=== PATIENT | female | born 1995 | race Caucasian/White ===

== ENCOUNTER 2017-06-11 19:01 | Emergency (ER) | payer MEDICAID, OTHER ==
[~2017-06-11] VITALS: Ht 157.5 cm; Wt 77.1 kg
[2017-06-11 19:05] VITALS: BP 132/75
--- NOTE | 2017-06-11 19:30 | NUR ---
21/F CAME IN W C/O 01/19 HEADACHE S/P MECHANICAL FALL. PT STATES " I SLIPPED AT THE MALL AND FELL BACKWARDS". LARGE HEMATOMA ON RT TEMPORAL AREA, NO BLEEDING NOTED. AOX4, GCS 15, PT DENIES ALOC, DENIES VISUAL DISTURBANCES, DENIES N/V. GAIT ASSESSED, PT WAS STEADY AND AMBULATORY WITHOUT DIFFICULTIES. DENIES PMH/RX/OTC
--- NOTE | 2017-06-11 21:00 | NUR ---
Patient discharged with v/s stable. Written and verbal after care instructions given and explained. Patient verbalized understanding. Ambulatory with steady gait. All questions addressed prior to discharge. Advised to follow up with PMD.
[2017-06-11 21:13] VITALS: BP 101/58
== END 2017-06-11 21:00 | disposition home or self-care (01) ==
LOC: MED 19:01
DX: S09.90XA Unspecified injury of head, initial encounter (principal); R03.0 Elevated blood-pressure reading, without diagnosis of hypertension; W19.XXXA Unspecified fall, initial encounter; Y93.89 Activity, other specified; Y92.59 Other trade areas as the place of occurrence of the external cause; Y99.8 Other external cause status
CPT/HCPCS: 81025; 99282

== ENCOUNTER 2017-08-10 11:56 | Emergency (ER) | payer OTHER ==
[~2017-08-10] VITALS: Ht 160 cm; Wt 78.5 kg
[2017-08-10 12:03] VITALS: BP 122/69
--- NOTE | 2017-08-10 12:05 | NUR ---
pt ambulates with steady gait to chair C.
--- NOTE | 2017-08-10 12:07 | NUR ---
21 YO F BIB BOYFRIEND W/ C/O SWOLLEN LEFT EYE. PT DENIES ANY DRAINAGE FROM THE EYE. NO REDNESS NOTED, BUT LEFT EYE IS ALMOST SWOLLEN SHUT. PT A&O X 4. GCS 15. CMS INTACT. RR EVEN AND UNLABORED. PT DENIES PAIN AT THIS TIME. ER MD ARANA NOTIFIED. PT NEEDS MET. WILL CONTINUE TO MONITOR.
[2017-08-10 12:22] VITALS: BP 122/69
== END 2017-08-10 12:22 | disposition home or self-care (01) ==
LOC: MED 11:56
DX: H00.024 Hordeolum internum left upper eyelid (principal)
CPT/HCPCS: 99283

== ENCOUNTER 2019-10-12 14:57 | Emergency (ER) | payer OTHER ==
[~2019-10-12] VITALS: Ht 157.5 cm; Wt 77.1 kg
[2019-10-12 15:01] VITALS: BP 103/62
--- NOTE | 2019-10-12 15:06 | NUR ---
PT TAKEN TO BED 4.
--- NOTE | 2019-10-12 15:09 | NUR ---
C/O WORSENING ANXIETY SINCE COVID STARTED. PT STARTED CRYING DURING ASSESSMENT STATES SHE FEELS OVERWHELMED. PT REPORTS SHE WORKS AT A [employer] AND FEELS FREQUENTLY EXPOSED TO COVID AND DOESNT WANT TO BRING COVID HOME TO HER DAUGHTER. PT STATES WHEN SHE HAS ANXIETY ATTACKS HER CHEST FEELS VERY HEAVY. MED HX: DEPRESSION, ANXIETY PT REPORTS SHE STOPPED TAKING HER ANXIETY MEDICATIONS 3 MONTHS AGO BUT CANT RECALL NAME.
[2019-10-12] MEDS ORDERED: LORazepam 1 MG TAB PO ONE (15:25)
--- NOTE | 2019-10-12 15:46 | NUR ---
ATIVAN PO ADMINISTERED
--- NOTE | 2019-10-12 16:05 | NUR ---
XRAY AT BEDSIDE
[2019-10-12 16:59] VITALS: BP 110/70
== END 2019-10-12 16:59 | disposition home or self-care (01) ==
LOC: MED 14:57
DX: F41.9 Anxiety disorder, unspecified (principal); F32.9 Major depressive disorder, single episode, unspecified; R06.02 Shortness of breath
CPT/HCPCS: 71045; 81025; 93005; 99283

== ENCOUNTER 2020-01-25 09:34 | Emergency (ER) | payer OTHER ==
[~2020-01-25] VITALS: Ht 154.9 cm; Wt 68.0 kg
--- NOTE | 2020-01-25 09:40 | NUR ---
Patient ambulated to bed 12. RN evaluating patient at bedside.
[2020-01-25 09:45] VITALS: BP 125/84
--- NOTE | 2020-01-25 10:06 | NUR ---
RAD AT BEDSIDE
--- NOTE | 2020-01-25 10:14 | NUR ---
PATIENT PRESENTS TO ED WITH LEFT RIB PAIN S/P TC 2 WEEKS AGO . PT STATES PAIN OCCURS DURING INHALATION AND IS A PIERCING SHARP PAIN . DENIES N/V/D; SKIN IS PINK/WARM/DRY; AAOX4 WITH EVEN AND STEADY GAIT; LUNGS CLEAR BL; HR EVEN AND REGULAR; PT DENIES ANY FEVER, CP, SOB, OR COUGH AT THIS TIME; PATIENT STATES PAIN OF 10/10 AT THIS TIME; VSS; PATIENT POSITIONED FOR COMFORT; HOB ELEVATED; BEDRAILS UP X2; BED DOWN. ER MD MADE AWARE OF PT STATUS.
[2020-01-25] MEDS ORDERED: KETOROLAC 30 MG/ML VIAL IM ONE (10:25)
[2020-01-25 10:47] VITALS: BP 125/84
== END 2020-01-25 10:47 | disposition home or self-care (01) ==
LOC: MED 09:34
DX: S20.212A Contusion of left front wall of thorax, initial encounter (principal); V49.9XXA Car occupant (driver) (passenger) injured in unspecified traffic accident, initial encounter; Y93.89 Activity, other specified; Y92.89 Other specified places as the place of occurrence of the external cause; Y99.8 Other external cause status
CPT/HCPCS: 71045; 81025; 96372; 99283; J1885

== ENCOUNTER 2022-04-12 14:48 | Emergency (ER) | payer OTHER ==
[~2022-04-12] VITALS: Ht 157.5 cm; Wt 65.8 kg
[2022-04-12 14:58] VITALS: BP 124/70
[2022-04-12] MEDS ORDERED: ONDANSETRON 4 MG/2 ML VIAL IVP ONE (15:10)
[2022-04-12] MEDS ORDERED: NACL 0.9% 1,000 ML IV ONE (15:10)
--- NOTE | 2022-04-12 15:50 | NUR ---
26 y/o female bib self with c/o nausea and vomiting x today. Per patient, had pozole yesterday and felt it didn't sit well with her stomach. Denies any sick contacts. Denies any fever or chills. Medical History: Denies NKDA
[2022-04-12 16:29] LABS: APPEARANCE,URINE CLEAR (CLEAR); BILIRUBIN,URINE NEGATIVE (NEGATIVE); BLOOD, URINE TRACE-I (NEGATIVE); COLOR,URINE YELLOW (YELLOW); LEUKOCYTE ESTERASE ,URINE NEGATIVE (NEGATIVE); NITRITE, URINE NEGATIVE (NEGATIVE); PH,URINE 7.5 (5.0-9.0); UGLUCOSE NEGATIVE (NEGATIVE)
[2022-04-12] MEDS ORDERED: TAM75 PO (16:32)
[2022-04-12] MEDS ORDERED: IBUP-2213 PO (16:32)
[2022-04-12] MEDS ORDERED: ONDA-188 SL (16:32)
[2022-04-12 16:48] LABS: RBC,URINE 11-20 (MOD) /HPF (0-5); WBC,URINE NONE SEEN /HPF (0-5)
--- NOTE | 2022-04-12 16:48 | NUR ---
Patient discharged with v/s stable. Written and verbal after care instructions given. Patient alert, oriented and verbalized understanding of instructions. Ambulatory with steady gait. All questions addressed prior to discharge. ID band removed. Patient advised to follow up with PMD. Rx of tamiflu, zofran and ibuprofen given. Opportunity to ask questions provided and answered.
--- NOTE | 2022-04-12 17:16 | NUR ---
The patient's care was reviewed and supervised by Amanda Park 04 ED, RN.
== END 2022-04-12 16:48 | disposition home or self-care (01) ==
LOC: MED 14:48
DX: J10.1 Influenza due to other identified influenza virus with other respiratory manifestations (principal)
CPT/HCPCS: 81001; 81025; 87804; 96361; 96374; 99283; J2405

== ENCOUNTER 2023-12-07 20:51 | Emergency (ER) | payer OTHER ==
[~2023-12-07] VITALS: Ht 157.5 cm; Wt 87.5 kg
[~2023-12-07 20:51] MED LIST: IBUP-2213 PO; ONDA-188 SL; TAM75 PO
[2023-12-07 21:32] VITALS: BP 116/71; PULSE 70; RESP 18; TEMP 98; O2SAT 98
[2023-12-08 00:02] VITALS: O2SAT 98
[2023-12-08] MEDS ORDERED: IBUP-1842 PO (00:59)
[2023-12-08] MEDS: IBUPROFEN 800 MG TAB PO ONE (01:08)
== END 2023-12-08 01:27 | disposition home or self-care (01) ==
LOC: MED 20:51
DX: M77.8 Other enthesopathies, not elsewhere classified (principal); Z79.899 Other long term (current) drug therapy
CPT/HCPCS: 73110; 99283